=== PATIENT | male | born 1995 | race Caucasian/White ===

== ENCOUNTER 2017-06-18 19:25 | Emergency (ER) | payer OTHER ==
[~2017-06-18] VITALS: Ht 180.3 cm; Wt 74.8 kg
[~2017-06-18 19:25] MED LIST: AMOXICILLIN500 MG PO
[2017-06-18] MEDS ORDERED: Peridex 473 ML473 ML PO (19:39)
[2017-06-18] MEDS ORDERED: PENICILLIN VK500 MG PO (19:39)
[2017-06-18] MEDS ORDERED: NAPROSYN500 MG PO (19:39)
== END 2017-06-18 20:54 | disposition home or self-care (01) ==
LOC: ED 19:25
DX: K08.89 Other specified disorders of teeth and supporting structures (principal); R03.0 Elevated blood-pressure reading, without diagnosis of hypertension